=== PATIENT | female | born 1940 | race Caucasian/White ===

== ENCOUNTER → 2017-12-04 19:01 | Outpatient (CLI) | payer MEDICARE, BC, SELFPAY ==
--- NOTE | 2017-12-04 | IMM_PTH ---
PATIENT: KENNY MORAN LOC: [facility] U#:[id number] AGE/SX: 84/F ROOM: RE12/04/[address]: Dr. Sanju Adamson MD : 1940 BED: DIS: SPEC #: [id number] RECD: 12/06/17 10:15 STATUS: [facility] REGrey #: [id number] HO: 12/04/17 00:[address]: Sanju Adamson DEPT: IMMUNOHISTOCHEMISTRY RECD BY: Susan Macias ENTERED: 12/06/17 10:19 SP TYPE: IMMUNO OTHR DR: No Primary Care Phys Tissues: A - Left breast, NOS B - Axillary lymph node, NOS C - Skin of breast, NOS Procedures: CK8 (initial) CK5-6 (add) CK8 (add) E-CAD (add) HER2 KEVIN (add) KI-67 (add) P53 (add) MS (add) ER (initial) PHYSICIAN & INSTITUTION [place] [id number] SPECIMEN INFORMATION: Tissue Source: A ? Left breast tissue, B ? Left axillary lymph node, C ? Left breast skin biopsy Clinical Info: Left breast mass Specimen Number: [id number] A-C CPT code: 60530 x3, 78137 x5, 48448 x3 METHODOLOGY: Deparaffinized sections of prefer/formalin-fixed tissue or PAP/DQ stained slides are incubated with monoclonal/polyclonal antibodies/oligonucleotide probes. Localization is made via biotin free immunoperoxidase method. Appropriate controls are performed and reacted as expected. Results on target cell population are indicated in the following table: RESULTS: ANTIBODY / CLONE RESULT Block A E-Cad (ECH-6) positive, focal and weak CK8 (18bxpcE68) positive CK5-6 (D5 & 1684) negative Ki-67 (30-9) positive, low P53 (DO-7) negative MORPHOMETRIC ANALYSIS ER (clone 6F11) >95%, moderate MS (clone 16/1E2) 57%, weak Her-2Neu (clone CB11) 0 Block B CK8 (74ccbeJ76) negative Block C E-Cad (ECH-6) positive, focal and weak CK8 (25suvaT89) positive The prognostic test for HER2 is performed on formalin-fixed paraffin embedded tissue. A 3+ (positive) staining pattern is defined as intense, homogeneous, complete, circumferential membranous staining in >10% of contiguous tumor cells. A similar weak (2+) staining pattern is interpreted as equivocal. TRAVON follow-up testing is recommended for all equivocal cases. Positivity/negativity for ER/MS is reported if > or < 1% of the tumor cells are immuno- reactive, respectively. The ASCO/CAP criteria is used for scoring. Reference: Journal of Clinical Oncology, 2013; 31:8180-4513 & 2010; 16:2989-3873. Duration of fixation: 28 Hrs; Sample Adequate: Yes. These assays have not been validated on decalcified tissues. Results should be interpreted with caution given the likelihood of false negativity on decalcified specimens. These tests were developed and their performance characteristics determined by [facility]. They may not have been cleared or approved by the [place]. Food and Drug Administration. The FDA has determined that such clearance or approval is not necessary. INTERPRETATION: A. Left breast tissue, core biopsy: Invasive carcinoma, mixed ductal and lobular features. Positive for estrogen receptors (favorable prognostic indicator). Positive for progesterone receptors (favorable prognostic indicator). Negative for overexpression of PXD7ckm. B. Left axillary lymph node, biopsy: Negative for metastatic carcinoma. C. Left breast skin, biopsy: Invasive carcinoma, mixed ductal and lobular features. SJ:kathleen 12/09/17 Case has been reviewed in consultation with Dr. Baugh who concurs with the above diagnosis. IDC:AM
--- NOTE | 2017-12-04 15:30 | BRBX_PTH ---
PATIENT: KENNY MORAN LOC: [facility] U#:[id number] AGE/SX: 84/F ROOM: RE12/04/[address]: Dr. Sanju Adamson MD : 1940 BED: DIS: SPEC #: [id number] RECD: 12/05/17 07:40 STATUS: [facility] TARIQ #: [id number] HO: 12/04/17 15:[address]: Sanju Adamson DEPT: SURGICAL PATHOLOGY RECD BY: Jerrod Howard ENTERED: 12/05/17 07:41 SP TYPE: BREAST BX OTHR DR: No Primary Care Phys Tissues: A - Left breast, NOS B - Left axillary region C - Skin of breast, NOS Procedures: Surgery Specimen Level IV HEADER OPERATION: Left breast biopsy PRE-OP DIAGNOSIS: Left breast mass TISSUE SUBMITTED: A ? Left breast tissue, B ? Left axillary lymph node, C ? Left breast skin biopsy ISCHEMIC TIME: 5 seconds FIXATION TIME: 28 hours MICROSCOPIC DIAGNOSIS A. Left breast tissue, core biopsy: Invasive carcinoma with mixed ductal and lobular features, nuclear grade 1 (0.4 cm in greatest length). See comment. B. Left axillary lymph node, biopsy: Fragments of fibroadipose tissue, negative for carcinoma. Lymph node tissue is not identified in the submitted specimen. See comment. C. Left breast skin, punch biopsy: Invasive carcinoma with mixed ductal and lobular features ,involving deeper dermis and subcutaneous tissue (0.5 cm in length). Obvious dermal lymphatic invasion is not seen. No evidence of Paget?s disease. See comment. SJ:rg 12/09/17 COMMENT A-C. Immunohistochemistry ([id number]) supports the above diagnosis. A. ER/MA/Lsh5owp studies are being performed on sections of tumor and the results from this study will be reported separately ([id number]). Case has been reviewed in consultation with Dr. Baugh who concurs with the above diagnosis. IDC:AM MICROSCOPIC DESCRIPTION Slides are reviewed. GROSS DESCRIPTION A - Received in fixative is one container labeled with the patient's name and designated left breast tissue #1. The specimen consists of multiple elongated fragments of luque-yellow fibroadipose tissue that in aggregate measure 2 x 0.5 x 0.1 cm. The entire specimen is submitted in one cassette. B - Received in fixative is one container labeled with the patient's name and designated left axillary lymph node #2. The specimen consists of multiple pieces of luque-yellow fibroadipose tissue that in aggregate measure 1.5 x 0.2 x 0.1 cm. The entire specimen is submitted in one cassette. C - Received in fixative is one container labeled with the patient's name and designated left breast skin #3. The specimen consists of a punch biopsy of luque-white skin measuring 0.2 cm in diameter and 0.8 cm in length. The specimen is totally submitted in one cassette. / DAVIDA:kathleen 12/05/17 TC:0 CPT: 28028 x3
== END ==
PROVIDERS: Visit Provider Surgery
DX: N63.20 Unspecified lump in the left breast, unspecified quadrant (principal)
CPT/HCPCS: 88305; 88341; 88342